=== PATIENT | male | born 1990 | race Hispanic/Latino ===

== ENCOUNTER 2025-05-08 22:44 | Emergency (ER) | payer SELFPAY ==
[~2025-05-08] VITALS: Ht 180.3 cm; Wt 83.9 kg
[2025-05-08 22:48] VITALS: PULSE 72; RESP 18; TEMP 97.7
[2025-05-08] MEDS: IBUPROFEN 600 MG TAB PO STA (23:41)
[2025-05-09 00:11] VITALS: BP 147/93; PULSE 77; RESP 17; TEMP 98.8; O2SAT 98
[2025-05-09] MEDS ORDERED: HYDROCODON-ACE1 EA12 PEG (00:18)
== END 2025-05-09 00:29 | disposition home or self-care (01) ==
LOC: ER 22:55
DX: S52.592A Other fractures of lower end of left radius, initial encounter for closed fracture (principal); W11.XXXA Fall on and from ladder, initial encounter; Y92.89 Other specified places as the place of occurrence of the external cause; F17.210 Nicotine dependence, cigarettes, uncomplicated
CPT/HCPCS: 99284